=== PATIENT | male | born 1945 | race Hispanic/Latino ===

== ENCOUNTER 2018-05-01 10:58 | Emergency (ER) | payer MEDICARE ==
[2018-05-01] MEDS ORDERED: Sodium Chloride 0.9% 1,000 ML ONE (11:42)
[2018-05-01 11:50] LABS: #Lymphocytes 0.9 thou/uL (1.20-3.40); #Monocytes 0.6 thou/uL (0.11-0.59); #Neutrophils 13.5 thou/uL (1.40-6.50); %Basophils 0.3 % (0.0-1.0); %Eosinophils 0.1 % (0.0-10.0); %Lymphocytes 5.8 % (21.0-51.0); %Monocytes 3.8 % (0.0-10.0); Hemoglobin 15.8 g/dL (14.0-18.0); Mean Corpuscular HGB CONC 33.8 g/dL (32.0-36.0); Mean Corpuscular Hemoglobin 30.6 pg (27.0-31.0); Mean Corpuscular Volume 90.6 fL (78.0-98.0); Mean Platelet Volume 8.4 fL (7.4-10.4); Platelet Count 256 thou/uL (130-400); RBC Distribution Width 11.8 % (11.5-14.5); Red Blood Cell (RBC) Count 5.15 mill/uL (4.70-6.10)
[2018-05-01 12:07] LABS: ALT (SGPT) 24 U/L (8-55); AST (SGOT) 19 U/L (5-34); Albumin 4.7 g/dL (3.4-4.8); Alkaline Phosphatase 44 U/L (40-150); Anion Gap 16 mmol/L (10-20); BUN (Urea Nitrogen) 13 mg/dL (8.4-25.7); Bilirubin, Total 0.9 mg/dL (0.2-1.2); Calc. Creatinine Clearance 0 mL/min (70-130); Calcium 9.8 mg/dL (7.8-10.44); Carbon Dioxide 23 mmol/L (23-31); Chloride 103 mmol/L (98-107); Estimated GFR-MDRD 81; Globulin 2.8 g/dL (2.4-3.5); Glucose 149 mg/dL (80-115); Lipase 14 U/L (8-78); Protein, Total 7.5 g/dL (5.8-8.1); Sodium 138 mmol/L (136-145)
[2018-05-01 13:00] LABS: Bilirubin Small (Negative); Blood, Urine Negative (Negative); Clarity Clear (Clear); Glucose, Urine (Dipstick) Negative (Negative); Leukocyte Negative (Negative); Nitrite Negative (Negative); Protein, Urine (Dipstick) 30 mg/dL (Neg-Trace); Specific Gravity, Urine 1.015 (1.005-1.030)
[2018-05-01 13:02] LABS: RBC/HPF 0-3 HPF (0-3); WBC/HPF None Seen HPF (0-3)
[2018-05-01 13:03] LABS: Bacteria/HPF None Seen HPF (None Seen); Squamous Epithelial 0-3 HPF (0-3)
--- NOTE | 2018-05-01 13:05 | CT ---
CT ABDOMEN AND PELVIS WITHOUT CONTRAST: DATE: 05/01/2018. PROVIDED CLINICAL HISTORY: Abdominal pain. FINDINGS: Visualized lung bases are not well evaluated due to patient respiratory motion. Ground-glass opacity of the dependent lung bases cannot be excluded. The solid abdominal organs are suboptimally evaluated in the absence of IV contrast material but demo nstrate an unremarkable unenhanced CT appearance. There is conspicuous fluid density throughout a nondilated colon. There is no evidence for bowel obs truction. No inflammatory fat stranding, free fluid, or free air apparent. Sigmoid colonic divertic bhanu are seen without CT evidence for diverticulitis. The appendix appears normal. The osseous structures demonstrate no concerning lytic or blastic lesions. Degenerative changes are seen. 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 IMPRESSION: 1. Fluid density throughout the nondilated colon suggests a diarrheal illness. 2. Chronic findings as above. POS: [facility]
--- NOTE | 2018-05-01 14:50 | RAD ---
TWO VIEWS CHEST: DATE: 05/01/2018. PROVIDED CLINICAL HISTORY: Cough. FINDINGS: No comparisons. The visualized lung bases are free of significant opacity. No focal consolidation, pleural fluid, or pneumothorax apparent. Degenerative changes are seen involving the thoracic spine. IMPRESSION: No evidence for an acute cardiopulmonary process. POS: C
== END 2018-05-01 14:27 | disposition home or self-care (01) ==
LOC: NAV ERS 10:58
DX: E86.0 Dehydration (principal); I10 Essential (primary) hypertension; Z79.899 Other long term (current) drug therapy
CPT/HCPCS: 71046; 74176; 80053; 81003; 81015; 83605; 83690; 84484; 85025; 93005; 96360; J7050